=== PATIENT | male | born 1990 | race Caucasian/White ===

== ENCOUNTER 2016-11-15 21:35 | Inpatient (IN) | payer SELFPAY ==
--- NOTE | ~2016-11-15 | DS ---
Unit #: [id number] #: [id number] Patient: [facility]HPAN[facility] [id number] [facility] [address] [place] [address] [id number] MR#: [id number] NAME: SERA DESHPANDE ROOM: [facility] Age: 26 Sex: M Admission Date: 11/15/2016 : 1990 Discharge Date: 11/18/2016 Attending Physician: González Garcia M.D. Primary Care Physician: Primary Care Physician No DISCHARGE SUMMARY IDENTIFYING DATA Mr. Deshpande is a 26-year-old single white male, who is a resident of [place], [place] and was self-referred to the hospital. DISCHARGE DIAGNOSES Psychiatric: Major depressive disorder, recurrent, moderate, without psychotic features; opioid dependence, moderate. Medical: None. Stressors: Moderate psychosocial stressors. HISTORY OF PRESENT ILLNESS Please see initial psychiatric evaluation for details. PAST PSYCHIATRIC HISTORY Please see initial psychiatric evaluation for details. PAST MEDICAL HISTORY Please see initial psychiatric evaluation for details. HOSPITAL COURSE The patient was admitted to the adult psychiatric and chemical dependency unit at [facility]on [facility]ay and was oriented to the hospital environment. Routine p.r.n. medications were initiated, and he was started back on his home medications and detox protocol was started and started on Remeron for depression and was closely monitored. He was taking the medications regularly and was tolerating them fairly well and was able to show a decent therapeutic response and was willing to continue treatment on an outpatient basis and as such, it was decided that he will be discharged home. He will continue treatment on an outpatient basis. DISCHARGE MEDICATIONS Remeron 15 mg at bedtime for depression. DISCHARGE CONDITION Stable. PROGNOSIS Guarded. Dictated by... González Garcia M.D. Unit #: [id number] #: [id number] Patient: SERA DESHPANDE IAA/modl TD: 11/18/2016 23:23 JOB #: [id number] DISCHARGE SUMMARY X González Garcia MD X DISCHARGE SUMMARY
--- NOTE | ~2016-11-15 | PA ---
Unit #: [id number] #: [id number] Patient: SERA DESHPANDE [id number] [facility] [address] [place] [address] [id number] I MR#: [id number] NAME: SERA DESHPANDE ROOM: P207 Age: 26 Sex: M Admission Date: 11/15/2016 : 1990 Date of Assessment: 11/16/2016 Attending Physician: González Garcia M.D. Admitting Physician: González Garcia M.D. Primary Care Physician: Primary Care Physician No PSYCHIATRIC ASSESSMENT DATE OF SERVICE 11/16/2016. IDENTIFYING DATA Mr. Garza is a 26-year-old single white male who is a resident of [place], [place] and was self-referred to the hospital on voluntary basis as a transfer from [facility]. CHIEF COMPLAINT "I overdosed on heroin." HISTORY OF PRESENT ILLNESS Mr. Gazra is a 26-year-old white male with history of substance abuse and dependence, who is known to us from previous encounter, was transferred to us from [facility], where he was taken via ambulance with overdose on heroin and reports that he took 0.5 g after 2 years of sober living and [facility]. After his roommate overdosed on heroin "I just could not take it anymore after seeing my roommate ." The patient reports that his overdose was an intentional suicide attempt "I was just so depressed after I got kicked out of my detention house and now my family wants nothing to do with me, and I might lose my job and I only had it for 2 weeks." The patient does report increasing depression, anxiety, restlessness, feelings of hopelessness and helplessness, and suicidal ideations with intent and plan, and attempt. SUBSTANCE ABUSE HISTORY The patient reports history of experimentation with alcohol and cannabis and opioids appear to be his drug of choice, and has been using 0.5 g with the last use being 5 days ago when he overdosed and ended up in the emergency room. PAST PSYCHIATRIC HISTORY The patient has had history of chemical dependency rehabilitation in the past. Review of the medical records indicated currently he is not active in any treatment program, is not seeing a psychiatrist, and not taking any psychotropic medications. PAST MEDICAL HISTORY The patient's medical history is insignificant. ALLERGIES No known medication allergies. Unit #: [id number] #: [id number] Patient: SERA DESHPANDE PERSONAL AND SOCIAL HISTORY A 26-year-old white male who reports that he is single, unemployed, essentially homeless after he got kicked out of his detention house, and reports poor social support system. MENTAL STATUS EXAMINATION Young white male who was casually dressed with fair personal hygiene, appears to be in no acute distress or discomfort. He was awake and alert on interaction with intact orientation to time, place, and person. His mood was anxious and depressed with a congruent affect. His speech was slow and goal directed. He reports having suicidal ideation, but denies any homicidal ideations, and also denies any auditory or visual hallucinations. His insight and judgment remain significantly impaired. DIAGNOSTIC IMPRESSION Psychiatric: Major depressive disorder, recurrent, moderate, without psychotic features; opioid dependence, moderate. Medical: None. Stressors: Moderate psychosocial stressors. TREATMENT PLAN 1. The patient has presented with history of mood disorder and substance abuse, and has been decompensating and will need inpatient hospitalization for safety and stabilization. We will start him back on his home medications. We will adjust the medications and monitor response. 2. Supportive therapy was provided to the patient. 3. Safe, structured, and nourishing environment will be provided. ESTIMATED LENGTH OF STAY 4 to 5 days. ABILITY TO HELP SELF Limited. WILLINGNESS TO HELP SELF The patient appears to be willing to help self. STRENGTHS 1. Communicative. 2. Cooperative. PROBLEMS 1. Chronic dysphoric symptoms. 2. Chronic chemical dependency. 3. Poor social support system. DISCHARGE CRITERIA This will be contingent upon the patient's ability to go through detox without having any significant withdrawal symptoms as well as his ability to stay safe to himself, particularly after discharge from the hospital. Dictated by... Oumar Doyle/lauren TD: 11/17/2016 00:50 Unit #: [id number] #: [id number] Patient: SERA DESHPANDE JOB #: [id number] PSYCHIATRIC ASSESSMENT X Afaq,Irfan A MD X PSYCHIATRIC ASSESSMENT
--- NOTE | ~2016-11-15 | PN ---
Unit #: [id number] #: [id number] Patient: SERA DESHPANDE [id number] [facility] [address] [place] [address] [id number] MR#: [id number] NAME: SERA DESHPANDE ROOM: P207 Age: 26 Sex: M Admission Date: 11/15/2016 : 1990 Attending Physician: González Garcia M.D. Admitting Physician: González Garcia M.D. Primary Care Physician: Primary Care Physician Kacey CHANDLER NOTES DATE OF SERVICE: 11/17/2016 SUBJECTIVE Mr. Deshpande is a 26-year-old white male, who was seen today and chart was reviewed, and case was discussed with the staff. He has been anxious, withdrawn, and rather seclusive to himself and has been exhibiting some persistent depressive symptoms. MENTAL STATUS EXAMINATION Young white male, who was casually dressed with fair personal hygiene, appears to be in no acute distress or discomfort. He was awake and alert on interaction with intact orientation to time, place, and person. TREATMENT PLAN 1. We will continue him on his current medications and treatment protocol. We will monitor his response to the medications and make further adjustments as needed. 2. . Dictated by... Oumar Doyle/lauren TD: 11/18/2016 05:39 JOB #: [id number] MICHELLE PROGRESS NOTES X González Garcia MD PROGRESS NOTE
--- NOTE | ~2016-11-15 | HP ---
Unit #: [id number] #: [id number] Patient: JAKE DESHPANDE [id number] [facility] [address] [place] [address] [id number] MR#: [id number] NAME: JAKE DESHPANDE ROOM: P207 Age: 26 Sex: M Admission Date: 11/15/2016 : 1990 Attending Physician: González Garcia M.D. Admitting Physician: González Garcia M.D. Primary Care Physician: Primary Care Physician No HISTORY AND PHYSICAL HISTORY OF PRESENT ILLNESS Jake is a 26 year old admitted to [address] [place] [address] because of his polysubstance abuse which includes benzodiazepines and IV heroin PAST MEDICAL HISTORY Long history of illicit substance abuse to include IV heroin. PAST SURGICAL HISTORY Nothing reported. ALLERGIES No known drug allergies. SOCIAL HISTORY Smokes one-half pack per day. Drinks alcohol rarely. Admits to a long history of poly illicit substance abuse to include benzodiazepines and IV heroin. FAMILY HISTORY Medically noncontributory. REVIEW OF SYSTEMS CONSTITUTIONAL: No fever or chills. HEENT: Denies any sore throat, ear pain or runny nose. CARDIOVASCULAR: Denies chest pain, irregular heart rhythm or palpitations. CHEST: Denies shortness of breath or cough. No hemoptysis. GASTROINTESTINAL: Denies nausea, vomiting, diarrhea or chronic constipation. ENDOCRINE: Denies history of increased thirst or urination. No recent significant weight loss or gain. GENITOURINARY: Denies dysuria, frequency, or hematuria. SKIN: Denies any rashes. HEMATOLOGIC: Denies history of increased bleeding or bruising. MUSCULOSKELETAL: Denies any hot, swollen joints. No generalized muscle pain. NEUROLOGIC: Denies problems with vision or speech. No frequent, severe headaches. No numbness, tingling or weakness in any extremities. Denies loss of bladder or bowel control. CURRENT MEDICATIONS 1. Detox protocol 2. Remeron 15 mg q.h.s. Unit #: [id number] #: [id number] Patient: JAKE DESHPANDE PHYSICAL EXAMINATION GENERAL: Alert, well-nourished, in no apparent distress. VITAL SIGNS: Blood pressure 120/70, heart rate 80, respirations 16, temperature 98.6. SKIN: Warm and dry without rash or lesion. HEENT: Normocephalic. TMs not viewed. Oral and nasal passages clear. Conjunctivae clear. Pupils equal, round and reactive to light and accommodation. Extraocular movements intact. NECK: Supple without lymphadenopathy or thyromegaly. HEART: Regular rate and rhythm without murmur. LUNGS: Clear. ABDOMEN: Soft, nontender. : Not done. EXTREMITIES: No evidence of cyanosis, clubbing or edema. Moves all extremities without focal deficit. NEUROLOGICAL: Grossly within normal limits. Cranial Nerves: II: Visual seth are intact. III, IV AND : Extraocular movements are intact. Pupils are equal, round and reactive to light. V: Facial sensation is grossly normal. VII: Facial movements and expression are normal. VIII: Auditory acuity grossly intact. IX, X: Uvula is midline. Phonation is normal. XI: Patient shrugs shoulders and turns head normally. XII: Tongue protrudes in the midline. Sensory and Motor Function: Sensory and motor sensation is grossly normal. Motor: moves all extremities well. Coordination: Gait is normal. Deep Tendon Reflexes: Intact. ADMISSION LABS AST/ALT 37/132. IMPRESSION 1. Psychiatric admission 2. History of illicit substance abuse to include IV heroin RECOMMENDATIONS PSYCHIATRIC: Per psychiatrist. MEDICAL: I see no contraindications to participating in facility's activities. MEDICAL PROGNOSIS Good. MEDICAL CONDITION Stable. Dictated by... Allan QuevedoANoelle-Karthik. for Oumar Covington/brendon TD: 11/17/2016 00:56 Unit #: [id number] #: [id number] Patient: JAKE DESHPANDE JOB #: [id number] HISTORY AND PHYSICAL X Lili Mas X HISTORY AND PHYSICAL
[~2016-11-15 21:35] MED LIST: ALBUTEROL17 GM INH; AMOXICILLIN500 M1 PO; FLEXERIL10 MG PO; IBUPROFEN PO; LORTAB 5/500 TA1 TA1 PO; MEDROL DOSEPAK4 MG DOB; MOTRIN600 MG PO; ULTRAM PO; VICODIN 5/1 TAB 5/50 PO; VICODIN 5/500 T1 TAB PO; ZOLOFT50 MG PO
[2016-11-16 09:43] LABS: BASOPHIL% 0.4 % (0-2.5); EOSINOPHIL# 0.2 X10e3 (0-0.7); EOSINOPHIL% 3.2 % (0.0-7.0); HEMOGLOBIN 12.9 gm/dL (13.0-16.0); LYMPHOCYTE# 2.1 X10e3 (1.0-3.5); LYMPHOCYTE% 36.2 % (17.0-45.0); MEAN CORPUSCULAR HGB CONC 32.9 g/dL (30-36); MEAN PLATELET VOLUME 9.1 FL (6.5-11.5); MONOCYTE# 0.5 X10e3 (0-1.0); MONOCYTE% 8.2 % (3.0-12.0); PLATELET COUNT 239 X10e3 (140-420); RED BLOOD COUNT 4.44 X10e (3.90-5.60); RED CELL DISTRIBUTION WIDTH 15.4 % (11.0-15.5); WHITE BLOOD COUNT 5.8 X10e3 (4.0-10.5)
[2016-11-16 09:44] LABS: DIFF IND NO
[2016-11-16 10:04] LABS: THYROID STIMULATING HORMONE 1.22 uIU/ml (0.34-5.60)
[2016-11-16 10:10] LABS: FREE THYROXIN (T4) 0.71 ng/dL (0.58-1.64)
[2016-11-16 10:11] LABS: ALBUMIN SERUM 3.5 g/dL (3.5-5.0); ALKALINE PHOSPHATASE 101 U/L (32-92); ALT (SGPT) 132 U/L (10-40); AST (SGOT) 37 U/L (10-42); BILIRUBIN,TOTAL 0.5 mg/dL (0.2-2.0); BLOOD UREA NITROGEN 10 mg/dL (9-23); CALCIUM SERUM 8.9 mg/dL (8.4-10.2); CARBON DIOXIDE 29 mmol/L (22-31); CHLORIDE 101 mmol/L (100-111); CREATININE SERUM 0.8 mg/dL (0.6-1.4); GLOM FILT RATE Estimated ABOVE60 mL/min (>60); GLUCOSE FASTING 134 mg/dL (70-110); POTASSIUM 4.5 mmol/L (3.5-5.1); PROTEIN TOTAL SERUM 6.3 g/dL (6.0-8.3); SODIUM 139 mmol/L (135-145)
[2016-11-17 09:37] LABS: BASOPHIL% 0.6 % (0-2.5); EOSINOPHIL# 0.2 X10e3 (0-0.7); EOSINOPHIL% 4.5 % (0.0-7.0); HEMATOCRIT 39.7 % (38.0-50.0); HEMOGLOBIN 13.1 gm/dL (13.0-16.0); LYMPHOCYTE# 1.4 X10e3 (1.0-3.5); LYMPHOCYTE% 34.7 % (17.0-45.0); MEAN PLATELET VOLUME 9.3 FL (6.5-11.5); MONOCYTE# 0.3 X10e3 (0-1.0); NEUTROPHIL# 2.2 X10e3 (1.5-7.1); NEUTROPHIL% 52.2 % (40-75); PLATELET COUNT 222 X10e3 (140-420); RED BLOOD COUNT 4.51 X10e (3.90-5.60); RED CELL DISTRIBUTION WIDTH 15.4 % (11.0-15.5); WHITE BLOOD COUNT 4.1 X10e3 (4.0-10.5)
[2016-11-17 09:41] LABS: DIFF IND NO
[2016-11-17 09:49] LABS: URINE APPEARANCE CLEAR; URINE BILIRUBIN NEG (NEG); URINE BLOOD NEG (NEG); URINE COLOR YELLOW; URINE GLUCOSE NEG (NEG); URINE KETONE NEG (NEG); URINE LEUKOCYTE ESTERASE NEG (NEG); URINE NITRATE NEG (NEG); URINE PROTEIN NEG (NEG); URINE SPECIFIC GRAVITY 1.006 (1.003-1.035); URINE UROBILINOGEN 0.2 MG/DL (NEG)
[2016-11-17 10:04] LABS: THYROID STIMULATING HORMONE 0.51 uIU/ml (0.34-5.60)
[2016-11-17 10:11] LABS: FREE THYROXIN (T4) 0.65 ng/dL (0.58-1.64)
[2016-11-17 10:30] LABS: ALBUMIN SERUM 3.6 g/dL (3.5-5.0); ALKALINE PHOSPHATASE 91 U/L (32-92); ALT (SGPT) 104 U/L (10-40); AST (SGOT) 29 U/L (10-42); BILIRUBIN,TOTAL 0.5 mg/dL (0.2-2.0); BLOOD UREA NITROGEN 8 mg/dL (9-23); CALCIUM SERUM 9.5 mg/dL (8.4-10.2); CARBON DIOXIDE 32 mmol/L (22-31); CHLORIDE 102 mmol/L (100-111); CREATININE SERUM 0.8 mg/dL (0.6-1.4); GLOM FILT RATE Estimated ABOVE60 mL/min (>60); GLUCOSE FASTING 167 mg/dL (70-110); POTASSIUM 4.8 mmol/L (3.5-5.1); PROTEIN TOTAL SERUM 6.6 g/dL (6.0-8.3); SODIUM 144 mmol/L (135-145)
== END 2016-11-18 14:19 | disposition home or self-care (01) | DRG 885 ==
LOC: P2S 21:35
PROVIDERS: Psychiatry & Neurology Psychiatry
PROC: HZ2ZZZZ Detoxification Services for Substance Abuse Treatment (ICD-10-PCS; principal; 2016-11-15)
DX: F33.1 Major depressive disorder, recurrent, moderate (principal); F11.20 Opioid dependence, uncomplicated; Z56.0 Unemployment, unspecified; Z59.0 Homelessness
CPT/HCPCS: 80053; 81003; 84439; 84443; 85025; 86592